=== PATIENT | female | born 1955 | race Native Hawaiian/Other Pacific Islander ===

== ENCOUNTER 2024-02-15 08:00 | Outpatient (CLI) | payer MEDICARE ==
--- NOTE | 2024-02-15 15:20 | XRAY Report ---
PROCEDURE: Shoulder 2+V RT INDICATIONS: RIGHT SHOULDER PAIN TECHNIQUE: 3 views of the shoulder were acquired. COMPARISON: None. FINDINGS: Bones: No fractures or dislocations. No suspicious bony lesions. Visualized ribs appear intact. M ild to moderate acromioclavicular minimal to mild glenohumeral arthritic change. There are 2 focal [address] eas of increased density overlying the right upper lobe. No priors. Soft tissues: No suspicious soft tissue calcifications. The visualized lungs are within normal limi ts. IMPRESSION: Early acromioclavicular and glenohumeral arthritic change. Calcifications are present overlying the right upper lobe. They are indeterminate in appearance and a ppear larger than expected for a calcified granuloma. No priors are available for comparison. Air-natacha led to be likely benign. However, 3 month interval chest x-ray follow-up is recommended. Reviewed by: Alda Shelton MD on 02/15/2024 3:19 PM PDT Approved by: Alda Shelton MD on 02/15/2024 3:19 PM PDT Station ID: [id number]
== END 2024-02-15 23:59 | disposition home or self-care (01) ==
LOC: DI.S 08:00
PROVIDERS: ATTEND Nurse Practitioner
DX: M19.011 Primary osteoarthritis, right shoulder (principal); M25.811 Other specified joint disorders, right shoulder